=== PATIENT | female | born 1980 | race Asian ===

== ENCOUNTER 2019-03-07 04:30 | Inpatient (IN) | payer OTHER ==
[~2019-03-07] VITALS: Ht 154.9 cm; Wt 77.4 kg
[2019-03-07 05:04] VITALS: BP 129/87; PULSE 82; RESP 18; Ht 154.9 cm; Wt 77.4 kg
[2019-03-07] MEDS ORDERED: LACTATED RINGER'S 1,000 ML IV SCH ×2 (05:16→09:55)
[2019-03-07] MEDS ORDERED: METHYLERGONOVINE 0.2 MG INJ IM PRN ×2 (05:30→10:00)
[2019-03-07] MEDS ORDERED: OXYTOCIN 30 UNITS/LR 500 ML IV PRN ×2 (05:30→10:00)
[2019-03-07] MEDS ORDERED: CARBOPROST 250 MCG INJ IM PRN ×2 (05:30→10:00)
[2019-03-07] MEDS ORDERED: MISOPROSTOL 200 MCG TAB PR PRN ×2 (05:30→10:00)
[2019-03-07] MEDS ORDERED: CEFAZOLIN 2 GM/50 ML (PMX) 50 ML IVPB SCH (05:30)
[2019-03-07] MEDS ORDERED: AZITHROMYCIN 500MG/NS (PMX) 250 ML IV SCH (05:30)
--- NOTE | 2019-03-07 05:57 | TRIAGE ---
OB Triage Datetime Report Generated by CPN: 03/07/2019 05:56 Datetime: 03/07/2019 05:10 Stage of : OB Triage Datetime: 03/07/2019 05:08 Stage of : OB Triage Datetime: 03/07/2019 05:02 Stage of : OB Triage Labor Evaluation Frequency: 3-4 Monitor Mode: External Duration (sec)2399: 50-60 Pattern: Normal: <= 5 Contractions in 10 Minutes Resting Tone [place]: Relaxed Heart Rate FHR Baseline Rate: 130 Monitor Mode: External US Variability: Moderate 6-25 bpm Accelerations: 15X15 Decelerations: None Category: Category I Datetime: 03/07/2019 04:59 Vaginal Exam Dilatation (cms): 2.5 Effacement (%): 80 Station: -2 Exam By: Gilles RN Datetime: 03/07/2019 04:55 Stage of : OB Triage Assessment Type: Triage Maternal Assessment Level of Consciousness: Fully Conscious DTR's/Clonus: DTRs 2+; No Clonus Headache: Denies Blurred Vision: No Respiratory Effort: Unlabored; Regular Rhythm; Equal Expansion Breath Sounds, Left: Clear and Equal Breath Sounds, Right: Clear and Equal Nausea/Vomiting: Denies RUQ Epigastric Pain: Denies Lower Extremities Edema: None Degree: None Upper Extremities Edema: None Degree: None Facial Edema: None Temperature Route: Oral Fall Risk Assessment History of Falling: (0) No Secondary Diagnosis: (0) No Ambulatory Aid: (0) Bedrest/Nurse Assist IV Therapy: (0) No Gait: (0) Normal/Bedrest/Immobile Mental Status: (0) Oriented to Own Ability Fall Score: 0 Fall Risk Score Definition: No Risk: No action required Monitor Mode: External Monitor Mode: External US Pain Assessment Pain Scale: 10 Pain Presence: Intermittent Pain Type: Contraction Pain Location: Abdomen; Back Pain Goal: 0 Datetime: 03/07/2019 04:54 Time of Arrival: 03/07/2019 04:33 EGA: 38.2 Arrived By: Wheelchair Arrived From: Emergency Dept Movement: Present Contractions: Regular Contractions: 5-6 Rupture of Membranes: Denies Vaginal Bleeding: None Vaginal Discharge: Denies Abdominal Trauma: Not Applicable Patient Complaints: Contractions Time Provider Notified: 03/07/2019 05:10 Provider Notified: LUCHO Initial Plan: VS, EFAaron, TORRES
[2019-03-07] MEDS ORDERED: PREN-22 PO (06:03)
[2019-03-07] MEDS ORDERED: CALC500T11 PO (06:05)
[2019-03-07] MEDS ORDERED: LACTATED RINGER'S 1,000 ML IV ONE (07:12)
--- NOTE | 2019-03-07 07:12 | PREAC ---
Date/Time of Note Date/Time of Note DATE: 03/07/19 TIME: 07:10 Anesthesia Eval and Record Evaluation Time Pre-Procedure Interview DATE: 03/07/19 TIME: 07:10 Age 38 Sex female NPO: Other (ate 11/22 banana 3 hours but in active labor with previous c sections so per OB doctor cannot wait for patient to be NPO) Preoperative diagnosis IUP 38.2 weeks Planned procedure repeat c section and btl Past Medical History Past Medical History: Includes : : (3), Para: (2), Gestational age: (38.2), Gestational diabetes Surgery & Anesthesia Issues No known issue Meds Anticoagulation: No Beta Eugenia within 24 hr: No Reason Beta Eugenia not given: Pt. not on B-Eugenia Reported Medications Calcium Carbonate (Oysco-500) 500 Mg Tablet, 500 MG PO, TAB 03/07/19 Pnv No.118/Iron Fumarate/FA ( 19 Chewable Tablet) 1 Each Tab.chew, 1 EACH PO, TAB.CHEW 03/07/19 Current Medications Lactated Ringer's 1,000 ml @ 125 mls/hr Q8H IV Last administered on 03/07/19at 05:35; Admin Dose 125 MLS/HR; Start 03/07/19 at 05:16 Cefazolin Sodium/ Dextrose 50 ml @ 100 mls/hr ONCE IVPB ; Start 03/07/19 at 05:30 Azithromycin 250 ml @ 250 mls/hr ONCE IV Last administered on 03/07/19at 05:55; Admin Dose 250 MLS/HR; Start 03/07/19 at 05:30 Oxytocin/Lactated Ringer's 500 ml @ 0 mls/hr ONCE PRN IV .VAGINAL BLEEDING; Start 03/07/19 at 05:30 Methylergonovine Maleate (Methergine) 0.2 mg ONCE PRN IM .VAGINAL BLEEDING; Start 03/07/19 at 05:30 Carboprost Tromethamine (Hemabate) 250 mcg ONCE PRN IM .VAGINAL BLEEDING; Start 03/07/19 at 05:30 Misoprostol (Cytotec) 1,000 mcg ONCE PRN [place] .VAGINAL BLEEDING; Start 03/07/19 at 05:30 Meds reviewed: Yes Allergies Coded Allergies: Penicillins (Verified Allergy, Severe, sob, rash, 03/07/19) Allergies Reviewed: Yes Labs/Studies Labs Reviewed: Reviewed by anesthesiologist Result Diagram: 03/07/19 0531 Laboratory Tests 03/07/19 05:31 test: N/A Pre-procedure Exam Last vitals Vital Signs Date Temp Pulse Resp B/P (MAP) Pulse Ox O2 O2 Flow FiO2 Time Delivery Rate 03/07/19 97.9 82 18 129/87 Room Air 05:04 (101) Airway: Adequate mouth opening, Adequate thyromental dist Mallampati: Mallampati II Teeth: Normal Lung: Normal Heart: Normal ASA Physical Status ASA physical status: 2 Emergency: E Planned Anesthetic Neuraxial: Spinal Planned Pain Management Parenteral pain med Pre-operative Attestations Prior to commencing anesthesia and surgery, the patient was re-evaluated, there was verification of: *The patient's identity *The results of appropriate recent lab work and preoperative vital signs *The above evaluation not changing prior to induction *Anesthetic plan, risk benefits, alternative and complications discussed with patient/family; questions answered; patient/family understands, accepts and wishes to proceed. JEFF CAMARILLO MD Mar 07, 2019 07:12
[2019-03-07] MEDS ORDERED: METOCLOPRAMIDE 10 MG INJ ONE (07:16)
[2019-03-07] MEDS ORDERED: morphine SULFATE/PF (10 MG/10 ML) INJ ONE (07:16)
[2019-03-07] MEDS ORDERED: CITRIC ACID/NA CITRATE 30 ML CUP ONE (07:17)
[2019-03-07] MEDS ORDERED: FAMOTIDINE 20 MG INJ ONE (07:17)
[2019-03-07] MEDS ORDERED: FAMOTIDINE 20 MG INJ IV ONE (07:30)
[2019-03-07] MEDS ORDERED: METOCLOPRAMIDE 10 MG INJ IV ONE (07:30)
[2019-03-07] MEDS ORDERED: CITRIC ACID/NA CITRATE 30 ML CUP PO ONE (07:30)
--- NOTE | 2019-03-07 07:47 | PREOPHP ---
DATE OF ADMISSION: 03/07/2019 HISTORY OF PRESENT ILLNESS: This is a 38-year-old lady, 3, para 2, EDC March 19, 2019 at 38 and 2/7 weeks, admitted to labor and delivery area in labor. She had care in my [place] office and the care was uneventful. She started to have contractions about a few hours prior to a dmission and got worse up to the time of admission. She wanted to go for sterilization, so she is fo r repeat , plus bilateral tubal ligation. The procedures were explained to the patient and she understood everything totally. The risks, benefits and alternatives were discussed with her as w jose. PAST PERSONAL HISTORY: No history of TB, asthma. ALLERGIES: NO ALLERGIES. SOCIAL HISTORY: Patient does not smoke. She does not drink. MEDICATIONS: She does not take any drugs except her iron and vitamins. She is gestational diabetes and on diet control. GYNECOLOGIC HISTORY: She had menarche at the age of 18, every 28 days interval, 3 to 4 days duration , and moderate in amount. FAMILY HISTORY: Mother has hypertension and heart disease. She is 3, para 2. Her first del jerri was in 2011 and the second in 2015, all by . REVIEW OF SYSTEMS: CARDIOVASCULAR: No chest pains. RESPIRATORY: No cough. GASTROINTESTINAL: No diarrhea, no vomiting. GENITOURINARY: No dysuria. PHYSICAL EXAMINATION: GENERAL: Reveals a conscious, coherent lady in no acute distress. VITAL SIGNS: Her blood pressure 130/80, pulse rate 80 per minute, respirations 16 per minute. BREASTS, HEART AND LUNGS: Within normal limits. ABDOMEN: Soft. No organomegaly. Fundic height 38 cm. heart tones 140 per minute. PELVIC: Revealed the cervix to be 4 cm dilated, 100% effaced, station floating in cephalic presentat ion with the bag of water intact. EXTREMITIES: No pedal edema. ADMITTING DIAGNOSIS: A 38 and 2/7 weeks intrauterine in labor with previous , mul tiparity. Patient desires sterilization. The patient was planned to have a repeat , plus t ubal ligation and transection. The procedures were explained to the patient and she understood every thing totally. The risks, benefits, and alternatives were discussed with her as well. Dictated By: AJ HERRON/HANNAH Conf#: [id number] [facility]#: [id number]
[2019-03-07] MEDS ORDERED: ONDANSETRON 4 MG INJ ONE (07:53)
[2019-03-07] MEDS ORDERED: MIDAZOLAM 1 MG/ML 2 ML INJ ONE (07:56)
[2019-03-07] MEDS ORDERED: FENTAnyl 50 MCG/ML VIAL ONE (08:07)
[2019-03-07] MEDS ORDERED: OXYTOCIN 30 UNITS/LR 500 ML IV ONE (08:19)
[2019-03-07] MEDS ORDERED: FENTAnyl 50 MCG/ML VIAL IV PRN ×3 (08:30)
[2019-03-07] MEDS ORDERED: KETOROLAC 30 MG INJ IV PRN (08:30)
[2019-03-07] MEDS ORDERED: ONDANSETRON 4 MG INJ IV PRN ×2 (08:30→10:30)
[2019-03-07] MEDS ORDERED: DIPHENHYDRAMINE 50 MG INJ IV PRN (08:30)
[2019-03-07] MEDS ORDERED: MEPERIDINE 25 MG INJ IV PRN (08:30)
[2019-03-07] MEDS ORDERED: PROCHLORPERAZINE 10 MG INJ IV PRN (08:30)
[2019-03-07] MEDS ORDERED: HYDROmorphONE 1 MG/5 ML IV SYRINGE IV PRN ×3 (08:30)
[2019-03-07] MEDS ORDERED: OXYTOCIN 30 UNITS/LR 500 ML IV SCH ×2 (09:41→09:55)
--- NOTE | 2019-03-07 09:55 | OPPN ---
Date/Time of Note Date/Time of Note DATE: 03/07/19 TIME: 09:53 Operative Report Planned Procedure Procedure date Mar 07, 2019 Procedure(s) REPEAT CSECTION LYSIS OF ADHESION AND BTL Performed by see signature line Tower Equipment Repairer: NICOLÁS KHAN MD 2nd Tower Equipment Repairer none Pre-procedure diagnosis 38 WEEK 2/7 IUP MULTIPARITY [id number] Anesthesia Type: [id number] spinal Post-Procedure Post-procedure diagnosis 38 WEEKS 2/7 IUP MULTIPARITY PELVIC ADHESION Findings Live Baby [], Apgars [] and [], weight [], position [], [] presentation []cord. Estimated Blood Loss: other (800) Specimen(s) none Grafts/Implant(s) PLACENTA BOTH TUBES Complication(s) none AJ YEPEZ MD Mar 07, 2019 09:55
[2019-03-07] MEDS ORDERED: METHYLERGONOVINE 0.2 MG TAB PO PRN (10:00)
[2019-03-07] MEDS ORDERED: LANOLIN HPA 1 PKT TOP PRN (10:00)
[2019-03-07] MEDS: OXYTOCIN 30 UNITS/LR 500 ML IV SCH ×2 (10:04→11:25)
[2019-03-07] MEDS ORDERED: NALOXONE (0.4 MG/ML) INJ IV PRN (10:30)
[2019-03-07] MEDS ORDERED: ZOLPIDEM 5 MG TAB PO PRN (10:30)
[2019-03-07] MEDS ORDERED: HYDROmorphONE 0.5 MG/0.5 ML SYG IV PRN ×2 (10:30)
--- NOTE | 2019-03-07 11:34 | PAC ---
Date/Time of Note Date/Time of Note DATE: 03/07/19 TIME: 11:34 Post-Anesthesia Notes Post-Anesthesia Note Last documented vital signs Vital Signs Date Temp Pulse Resp B/P (MAP) Pulse Ox O2 O2 Flow FiO2 Time Delivery Rate 03/07/19 97.9 82 18 129/87 Room Air 05:04 (101) Activity: WNL Respiratory function: WNL Cardiovascular function: WNL Mental status: Baseline Pain reasonably controlled: Yes Hydration appropriate: Yes Nausea/Vomiting absent: Yes Comments BP: 139/85 HR: 87 RR: 15 T: 98.3 SaO2: 97% JEFF CAMARILLO MD Mar 07, 2019 11:34
[2019-03-07 12:00] VITALS: BP 142/80; PULSE 77; RESP 18
[2019-03-07 13:00] VITALS: BP 142/68; PULSE 77; RESP 18
[2019-03-07] MEDS: KETOROLAC 30 MG INJ IV PRN (13:56)
[2019-03-07] MEDS: DIPHENHYDRAMINE 50 MG INJ IV PRN (15:05)
[2019-03-07 15:34] VITALS: BP 132/72; PULSE 76; RESP 18
--- NOTE | 2019-03-07 17:33 | OPR ---
DATE OF OPERATION: 03/07/2019 PREOPERATIVE DIAGNOSES: 1. A 38 and 2/7 weeks intrauterine in labor. 2. Two previous sections. 3. Multiparity. 4. Desires sterilization. POSTOPERATIVE DIAGNOSES: 1. A 38 and 2/7 weeks intrauterine in labor. 2. Two previous sections. 3. Multiparity. 4. Desires sterilization. 5. Severe pelvic and abdominal adhesions. 6. atony. SURGEON: Aj Upton MD ROPE SILICA MACHINE OPERATOR: Trupti Anand MD ANESTHESIA: Spinal. ANESTHESIOLOGIST: Cora Meraz MD OPERATIVE TECHNIQUE: Under spinal anesthesia, the patient was prepped and draped in the usual fashio n for abdominal surgery. After checking for the effect of the anesthesia, the previous Pfannenstiel scar was excised. A 12 cm skin incision was performed. The incision was carried from the skin up to the fascia. Upon opening the skin up to the fascia, small blood vessels were noted to be oozing and these were all cauterized. Fascia was opened transversely followed by splitting the muscles vertica lly and the peritoneum vertically. Upon opening the abdominal cavity, the omentum was noted to be at tached all over the anterior parietal peritoneum. All these adhesions were lysed by sharp and blunt dissection. Bladder blade was put in place. The lower uterine segment was noted to be very thinned out. An incision was performed about 2 inches above the lower uterine segment from the serosa up to the endometrium and the sawyer was carried sideways with the aid of my 2 fingers. My left hand was ins erted on the lower segment of the uterus and the bag of water was ruptured. Clear fluid was noted. Baby's head was tried to be delivered with good fundal pressure, but with difficulty, so that the vac uum was applied once and after 3 seconds delivered the baby's head. The baby's airway was quickly sandoval ctioned with amniotic fluid. There was 1 loop of tight cord around the baby's neck that needs to be released prior to the delivery of the rest of the body of the baby. Baby's cord was clamped after 30 seconds. The baby was handed to the nursery nurse and to the NICU team. The placenta was delivered manually and complete. The uterus was exteriorized. The uterus was cleansed with wet lap sponge to make sure that no membranes were left behind. After correct sponge count, the uterus was clos ed in the usual fashion using #1 chromic for the first layer, continuous locking suture was used foll owed by #1 chromic for the second layer, imbricating sutures were used. Bleeders were checked and th ere was no bleeding noted. After checking for any bleeders in which there were none, both tubes and ovaries were inspected. They were healthy looking. The right tube was grasped on the center where t he avascular area was. A 1 cm tube was stick tied at the proximal and distal portions, first stick t ie with 2-0 silk on the proximal and distal portion about 1 cm tube was put in and this was followed by another stick tie with 2-0 chromic. Then, the right tube was cut and the cut ends were cauterized . The right fimbria was identified. As mentioned, a stick tie with 2-0 silk and the proximal and di stal portion was done followed by another free tie with 2-0 chromic above the second tie. As mention ed, the right tube was cut and the cut ends were cauterized. Same thing was done on the left side. A 1 cm tube was transected on both sides. Then, bleeders were checked and there was no bleeding note d. Both ovaries were identified. They were healthy looking. The broad ligaments were checked for a ny hematoma and there was none noted. Then the uterus was put back to the pelvic cavity. Once again , uterine incision was checked for any bleeders and there was no bleeding noted. After correct spong e count, needle count and instrument count as confirmed by the extractions technician and office services manager, the abdomen was closed in the usual fashion using 0 Vicryl for the peritoneum, 0 Vicryl for the muscles, for the fascia 0 Vicryl continuous stitch was used followed by few [id number] suture for the subcutaneo us tissue, it was closed with 3-0 Vicryl and the skin was closed with 3-0 Vicryl, subcuticular suture was used. The patient tolerated the procedure well. After the , vaginal exam was done as I always do and there was about 200 mL of clotted and unclotted blood inside the uterus and the uteru s was hypotonic. After extracting all the blood clots and after ordering Methergine and Hemabate, th e uterus was contracted. The estimated blood loss was about 800 mL. Vital signs were stable during and after the delivery. She delivered on 03/07/2019 at 7:54 a.m. healthy girl, 9 and 9, weighi ng 7 pounds, 3180 grams, 19.8 inches long. Dictated By: AJ HERRON/HANNAH Conf#: [id number] DID#: [id number]
[2019-03-07 19:55] VITALS: BP 107/55; PULSE 77; RESP 18
[2019-03-07] MEDS: SENNA/DOCUSATE NA (8.6MG/50MG) TAB PO SCH (21:16)
[2019-03-08] MEDS: KETOROLAC 30 MG INJ IV PRN ×2 (00:14→07:43)
[2019-03-08 00:15] VITALS: BP 116/70; PULSE 71; RESP 19
[2019-03-08] MEDS: DIPHENHYDRAMINE 50 MG INJ IV PRN (00:15)
[2019-03-08 03:45] VITALS: BP 112/59; PULSE 74; RESP 19
[2019-03-08] MEDS ORDERED: IBUPROFEN 800 MG TAB PO PRN (07:30)
[2019-03-08 08:00] VITALS: BP 110/63; PULSE 69; RESP 18
[2019-03-08] MEDS: SENNA/DOCUSATE NA (8.6MG/50MG) TAB PO SCH ×2 (10:03→21:54)
[2019-03-08] MEDS: HYDROCODONE/APAP (5/325) TAB PO PRN ×3 (11:33→21:56)
[2019-03-08 16:00] VITALS: BP 132/75; PULSE 74; RESP 18
[2019-03-08] MEDS: IBUPROFEN 800 MG TAB PO PRN (17:13)
--- NOTE | 2019-03-08 18:28 | PN ---
Date/Time of Note Date/Time of Note DATE: 03/08/19 TIME: 18:26 Assessment/Plan VTE Prophylaxis Risk score (from Ns)>0 risk: 2 SCD applied (from Ns): Yes Pharmacological prophylaxis: NA/contraindicated Pharm contraindication: low risk/ambulating Lines/Catheters IV Catheter Type (from Nrs): Peripheral IV Assessment/Plan Assessment/Plan POSTCSECTION DAY 1 CHRONIC IRON DEFICIENCY ANEMIA ORDERED ADVANCE DIET TOLERATED CBC ON 3RD POSTOP DAY Result Diagram: 03/08/19 0818 03/08/19 0818 Results 24hrs Laboratory Tests Test 03/08/19 06:36 03/08/19 08:18 Lab Scanned Report REFERENCE LAB White Blood Count 10.0 Red Blood Count 3.65 L Hemoglobin 10.2 L Hematocrit 32.0 L Mean Corpuscular Volume 87.7 Mean Corpuscular Hemoglobin 27.9 L Mean Corpuscular Hemoglobin Concent 31.9 L Red Cell Distribution Width 12.7 Platelet Count 242 Mean Platelet Volume 9.6 Immature Granulocytes % 0.400 Neutrophils % 79.5 H Lymphocytes % 13.7 L Monocytes % 6.0 Eosinophils % 0.2 Basophils % 0.2 Nucleated Red Blood Cells % 0.0 Immature Granulocytes # 0.040 H Neutrophils # 8.0 H Lymphocytes # 1.4 Monocytes # 0.6 Eosinophils # 0.0 Basophils # 0.0 Nucleated Red Blood Cells # 0.0 Sodium Level 135 Potassium Level 3.8 Chloride Level 100 Carbon Dioxide Level 29 Anion Gap 6 Blood Urea Nitrogen 11 Creatinine 0.63 Est Glomerular Filtrat Rate mL/min > 60 Glucose Level 76 Calcium Level 8.5 Subjective 24 Hr Interval Summary Free Text/Dictation POST CSECTION DAY 1 COMPLAIN OF INCISIONAL PAINS GOOD URINE OUTPUT PASSING GAS PER RECTUM NO BOWEL MOVEMENT YET Exam/Review of Systems Exam Vitals Vital Signs Date Temp Pulse Resp B/P (MAP) Pulse Ox O2 O2 Flow FiO2 Time Delivery Rate 03/08/19 98.6 74 18 132/75 Room Air 16:00 (94) 03/08/19 96 03:45 Intake and Output 03/07/19 03/07/19 03/08/19 1515:00 23:00 07:00 IntakeIntake Total 1500 ml 100 ml 400 ml OutputOutput Total 2195 ml 700 ml 500 ml BalanceBalance -695 ml -600 ml -100 ml Exam VITAL SIGNS STABLE: YES AFEBRILE: YES BREAST NOT ENGORGED, NON-TENDER, NO APPRECIABLE MASS: YES LUNGS CLEAR, NO RALES, WHEEZES, RHONCHI: YES SINUS RHYTHM WITHOUT MURMUR: YES ABDOMEN: NON-TENDER FUNDUS: BELOW UMBILICUS BOWEL SOUNDS: PRESENT UTERUS: FIRM INCISION (CLEAN, DRY, AND INTACT): YES LOCHIA: LIGHT DEEP TENDON REFLEXES: 0 EXTREMITIES: NO CALF TENDERNESS EDEMA SCALE: NONE Results Results 24hrs Laboratory Tests Test 03/08/19 06:36 03/08/19 08:18 Lab Scanned Report REFERENCE LAB White Blood Count 10.0 Red Blood Count 3.65 L Hemoglobin 10.2 L Hematocrit 32.0 L Mean Corpuscular Volume 87.7 Mean Corpuscular Hemoglobin 27.9 L Mean Corpuscular Hemoglobin Concent 31.9 L Red Cell Distribution Width 12.7 Platelet Count 242 Mean Platelet Volume 9.6 Immature Granulocytes % 0.400 Neutrophils % 79.5 H Lymphocytes % 13.7 L Monocytes % 6.0 Eosinophils % 0.2 Basophils % 0.2 Nucleated Red Blood Cells % 0.0 Immature Granulocytes # 0.040 H Neutrophils # 8.0 H Lymphocytes # 1.4 Monocytes # 0.6 Eosinophils # 0.0 Basophils # 0.0 Nucleated Red Blood Cells # 0.0 Sodium Level 135 Potassium Level 3.8 Chloride Level 100 Carbon Dioxide Level 29 Anion Gap 6 Blood Urea Nitrogen 11 Creatinine 0.63 Est Glomerular Filtrat Rate mL/min > 60 Glucose Level 76 Calcium Level 8.5 Medications Medication Current Medications Oxytocin/Lactated Ringer's 500 ml @ 0 mls/hr ONCE PRN IV .VAGINAL BLEEDING; Start 03/07/19 at 05:30 Oxytocin/Lactated Ringer's 500 ml @ 500 mls/hr ONCE POST IV ; Start 03/07/19 at 09:41 Oxytocin/Lactated Ringer's 500 ml @ 125 mls/hr POST IV Last administered on 03/07/19at 11:25; Admin Dose 125 MLS/HR; Start 03/07/19 at 09:41 Methylergonovine Maleate (Methergine) 0.2 mg Q6H PRN PO .VAGINAL BLEEDING; Start 03/07/19 at 10:00 Acetaminophen/ Hydrocodone Bitart ([place] (5/325)) 1 tab Q4H PRN PO MODERATE PAIN LEVEL 4-6 Last administered on 03/08/19at 17:14; Admin Dose 1 TAB; Start 03/08/19 at 07:30 Acetaminophen/ Hydrocodone Bitart ([place] (5/325)) 2 tab Q4H PRN PO SEVERE PAIN LEVEL 7-10 Last administered on 03/08/19at 11:33; Admin Dose 2 TAB; Start 03/08/19 at 07:30 Simethicone (Mylicon) 160 mg Q8H PRN PO .GAS; Start 03/07/19 at 10:00 Senna/Docusate Sodium (Senokot-S) 1 tab BID PO Last administered on 03/08/19at 10:03; Admin Dose 1 TAB; Start 03/07/19 at 21:00 Lanolin (Lanolin Hpa) 1 applic BEDSIDE MEDICATION PRN TOP .NIPPLES; Start 03/07/19 at 10:00 Diphtheria/ Tetanus/Acell Pertussis (Adacel) 0.5 ml ONCE ONCE IM* ; Start 03/10/19 at 09:00; Stop 03/10/19 at 09:01 Measles/Mumps/ Rubella Vaccine Live (Mmr Ii Vaccine) 0.5 ml ONCE ONCE SC* ; Start 03/10/19 at 09:00; Stop 03/10/19 at 09:01 Oxytocin/Lactated Ringer's 500 ml @ 0 mls/hr ONCE PRN IV .VAGINAL BLEEDING; Start 03/07/19 at 10:00 Methylergonovine Maleate (Methergine) 0.2 mg ONCE PRN IM .VAGINAL BLEEDING; Start 03/07/19 at 10:00 Carboprost Tromethamine (Hemabate) 250 mcg ONCE PRN IM .VAGINAL BLEEDING; Start 03/07/19 at 10:00 Misoprostol (Cytotec) 1,000 mcg ONCE PRN SC .VAGINAL BLEEDING; Start 03/07/19 at 10:00 Ibuprofen (Motrin) 800 mg Q8H PRN PO MILD PAIN LEVEL 1-3 Last administered on at 17:13; Admin Dose 800 MG; Start 03/08/19 at 16:00 AJ YEPEZ MD Mar 08, 2019 18:28
[2019-03-08 20:05] VITALS: BP 123/72; PULSE 70; RESP 18
[2019-03-09] MEDS: IBUPROFEN 800 MG TAB PO PRN ×2 (03:30→21:18)
[2019-03-09] MEDS: HYDROCODONE/APAP (5/325) TAB PO PRN ×3 (03:30→17:18)
[2019-03-09 04:15] VITALS: BP 126/61; PULSE 68; RESP 18
[2019-03-09 08:00] VITALS: BP 123/72; PULSE 69; RESP 19
[2019-03-09] MEDS: SENNA/DOCUSATE NA (8.6MG/50MG) TAB PO SCH ×2 (09:00→21:18)
[2019-03-09 15:40] VITALS: BP 115/65; PULSE 74; RESP 16
--- NOTE | 2019-03-09 16:55 | PN ---
Date/Time of Note Date/Time of Note DATE: 03/09/19 TIME: 16:53 Assessment/Plan VTE Prophylaxis Risk score (from Nsg)>0 risk: 3 SCD applied (from Nsg): No SCD contraindicated: low risk/ambulating Pharmacological prophylaxis: NA/contraindicated Pharm contraindication: low risk/ambulating Lines/Catheters IV Catheter Type (from Nrsg): Peripheral IV Assessment/Plan Assessment/Plan POST CSECTION DAY 2 HOME TOMORROW CBC TOMORROW COUNSELED INSTRUCTED PRESCRIPTION GIVEN FOR PAIN RETURN TO CLINIC IN 2 WEEKS CALL OFFICE IF THERE IS ANY PROBLEM OR CONCERN CONTINUE WITH VITAMINS OD AND FERROUS SULFATE 325MG PO TID DIET ADVISED Result Diagram: 03/08/1981703/08/19817 Subjective 24 Hr Interval Summary Free Text/Dictation POST CSECTION DAY 2 LITTLE BOWEL MOVEMENT GOOD URINE OUTPUT FEELS LESS INCISIONAL PAINS Exam/Review of Systems Exam Vitals Vital Signs Date Temp Pulse Resp B/P (MAP) Pulse Ox O2 O2 Flow FiO2 Time Delivery Rate 03/09/19 98.4 74 16 115/65 15:40 (82) 03/09/19 Room Air 08:00 03/08/19 96 03:45 Exam VITAL SIGNS STABLE: YES AFEBRILE: YES BREAST NOT ENGORGED, NON-TENDER, NO APPRECIABLE MASS: YES LUNGS CLEAR, NO RALES, WHEEZES, RHONCHI: YES SINUS RHYTHM WITHOUT MURMUR: YES ABDOMEN: NON-TENDER FUNDUS: BELOW UMBILICUS BOWEL SOUNDS: PRESENT UTERUS: FIRM INCISION (CLEAN, DRY, AND INTACT): YES LOCHIA: LIGHT DEEP TENDON REFLEXES: 0 EXTREMITIES: NO CALF TENDERNESS EDEMA SCALE: NONE Medications Medication Current Medications Oxytocin/Lactated Ringer's 500 ml @ 0 mls/hr ONCE PRN IV .VAGINAL BLEEDING; Start 03/07/19 at 05:30 Oxytocin/Lactated Ringer's 500 ml @ 500 mls/hr ONCE POST IV ; Start 03/07/19 at 09:41 Oxytocin/Lactated Ringer's 500 ml @ 125 mls/hr POST IV Last administered on 03/07/19at 11:25; Admin Dose 125 MLS/HR; Start 03/07/19 at 09:41 Methylergonovine Maleate (Methergine) 0.2 mg Q6H PRN PO .VAGINAL BLEEDING; Start 03/07/19 at 10:00 Acetaminophen/ Hydrocodone Bitart ([place] (5/325)) 1 tab Q4H PRN PO MODERATE PAIN LEVEL 4-6 Last administered on 03/09/19at 03:30; Admin Dose 1 TAB; Start at 07:30 Acetaminophen/ Hydrocodone Bitart ([place] (5/325)) 2 tab Q4H PRN PO SEVERE PAIN LEVEL 7-10 Last administered on 03/09/19 11:01; Admin Dose 2 TAB; Start 03/08/19 at 07:30 Simethicone (Mylicon) 160 mg Q8H PRN PO .GAS Last administered on 03/09/19 06:42; Admin Dose 160 MG; Start 03/07/19 at 10:00 Senna/Docusate Sodium (Senokot-S) 1 tab BID PO Last administered on 03/08/19 21:54; Admin Dose 1 TAB; Start 03/07/19 at 21:00 Lanolin (Lanolin Hpa) 1 applic BEDSIDE MEDICATION PRN TOP .NIPPLES; Start 03/07/19 at 10:00 Diphtheria/ Tetanus/Acell Pertussis (Adacel) 0.5 ml ONCE ONCE IM* ; Start 03/10/19 at 09:00; Stop 03/10/19 at 09:01 Measles/Mumps/ Rubella Vaccine Live (Mmr Ii Vaccine) 0.5 ml ONCE ONCE SC* ; Start 03/10/19 at 09:00; Stop 03/10/19 at 09:01 Oxytocin/Lactated Ringer's 500 ml @ 0 mls/hr ONCE PRN IV .VAGINAL BLEEDING; Start 03/07/19 at 10:00 Methylergonovine Maleate (Methergine) 0.2 mg ONCE PRN IM .VAGINAL BLEEDING; Start 03/07/19 at 10:00 Carboprost Tromethamine (Hemabate) 250 mcg ONCE PRN IM .VAGINAL BLEEDING; Start 03/07/19 at 10:00 Misoprostol (Cytotec) 1,000 mcg ONCE PRN [place] .VAGINAL BLEEDING; Start 03/07/19 at 10:00 Ibuprofen (Motrin) 800 mg Q8H PRN PO MILD PAIN LEVEL 1-3 Last administered on 03/09/19 03:30; Admin Dose 800 MG; Start 03/08/19 at 16:00 AJ YEPEZ MD Mar 09, 2019 16:54
[2019-03-09 20:00] VITALS: BP 131/69; PULSE 76; RESP 20
[2019-03-10] MEDS: HYDROCODONE/APAP (5/325) TAB PO PRN ×2 (02:05→07:36)
[2019-03-10 03:21] VITALS: BP 124/64; PULSE 74; RESP 20
[2019-03-10 08:21] VITALS: BP 140/81; PULSE 64; RESP 19
[2019-03-10] MEDS: SENNA/DOCUSATE NA (8.6MG/50MG) TAB PO SCH (09:00)
[2019-03-10] MEDS ORDERED: MEASLES,MUMPS,RUBELLA VACCINE INJ SC* ONE (09:00)
[2019-03-10] MEDS ORDERED: DIPHTH/TET/ACEL PERTUSS (ADULT) 0.5 ML VIAL IM* ONE (09:00)
[2019-03-10 10:00] VITALS: BP 121/67; PULSE 63; RESP 20
--- NOTE | 2019-03-10 11:17 | NSTRPT ---
NST Information Datetime Report Generated by CPN: 03/10/2019 11:17 Datetime: 03/05/2019 10:55 NST Information EGA: 38.0 Test Number: 2 Time on Monitor: 03/05/2019 11:09 Time off Monitor: 03/05/2019 11:57 NST Duration (Min): 48 Reason for NST: Diabetes Mellitus; Other Reason for NST Other: A1DM Test and Monitor Explained: Monitor Explained; Test Explained; Verbalized Understanding; Breastfeed ing Info Given Pulse: 75 Resp: 18 SBP: 118 DBP: 70 Test Evaluation NST Interventions: Reposition Patient Patient States Movement: Present Contraction Frequency: NONE FHR Baseline : 135 Variability: Moderate 6-25bpm Accelerations: 15X15 FHR Category: Category I NST Results: Reactive Comments: PT TO U/S. MONTY 11.2cm. CEPPHALIC. Strip reviewed by Dr. Jain before discharge. Electronically Signed By E-Signature: with User ID: [id number] Datetime: 02/26/2019 11:00 NST Information EGA: 37.0 NST Duration (Min): 28
--- NOTE | 2019-03-11 14:25 | DELSUM ---
Delivery Summary A-C Datetime Report Generated by CPN: 03/11/2019 14:25 DELIVERY PERSONNEL It Project Manager: Arnold, Mackenzie MATERNAL INFORMATION Delivery Anesthesia: Spinal Medications in Delivery: SEE ANESTHESIA RECORDS Delivery QBL (ml): 800 Placenta Cultured: No Maternal Complications: Other Other Maternal Complications: GDM LABOR SUMMARY EDC: 03/19/2019 00:00 No. Babies in Womb: 1 Attempted: No Labor Anesthesia: None LABOR INFORMATION Reason for Induction: Not Applicable Onset of Labor: 03/07/2019 02:30 Oxytocin: N/A Group B Beta Strep: Negative Antibiotics # of Doses: zithromax 500 mg; ancef 2 gm Antibiotics Time of Last Dose: 03/07/2019 07:17 Steroids Given: None Reason Steroids Not Administered: Not Applicable MEMBRANES Membranes Rupture Method: Artificial Rupture of Membranes: 03/07/2019 07:53 Length of Rupture (hr): 0.02 Amniotic Fluid Color: Clear Amniotic Fluid Amount: Moderate Amniotic Fluid Odor: Normal STAGES OF LABOR Stage 3 hr: 0 Stage 3 min: 1 Total Time in Labor hr: 5 Total Time in Labor min: 25 CSECTION DELIVERY Primary Indication: Repeat Elective CSection Urgency: Elective CSection Incidence: Repeat Labor: Labor CSection Incision: Lower Uterine Transverse Sterilization Procedure: [place] BABY A INFORMATION Delivery Date/Time: 03/07/2019 07:54 Method of Delivery: Born in Route : No : N/A Forceps: N/A Vacuum Extraction: Successful Shoulder Dystocia : N/A ASSISTED DELIVERY BABY A Vacuum Number of Pulls: 1 Vacuum Number of PopOffs: 0 Vacuum Chief Administrative Officer: kiwi SHOULDER DYSTOCIA BABY A Infant Delivery Date/Time: 03/07/2019 07:54 PRESENTATION/POSITION BABY A Presentation: Cephalic Cephalic Presentation: Vertex Vertex Position: Left Occipital Anterior Breech Presentation: N/A PLACENTA INFORMATION BABY A Placenta Delivery Time : 03/07/2019 07:55 Placenta Method of Delivery: Manual Removal Placenta Status: Delivered SCORES BABY A Heart Rate 1 min: >100 bpm Resp Effort 1 min: Good Cry Reflex Irritability 1 min: Cough/Sneeze/Pulls Away Muscle Tone 1 min: Active Motion Color 1 min: Body [place], Extremit Blue Resuscitation Effort 1 min: Tactile Stimulation SCORE 1 MIN: 9 Heart Rate 5 min: >100 bpm Resp Effort 5 min: Good Cry Reflex Irritability 5 min: Cough/Sneeze/Pulls Away Muscle Tone 5 min: Active Motion Color 5 min: Body [place], Extremit Blue Resuscitation Effort 5 min: Tactile Stimulation SCORE 5 MIN: 9 INFORMATION BABY A Gestational Age at Delivery: 38.2 Gestational Status: Early Term- 37- 38.6 Weeks Outcome : Liveborn Infant Condition : Stable Infant Sex: Female IDENTIFICATION/MEDS BABY A ID Band Number: [id number] ID Band Location: Right Leg; Left Arm Sensor Applied: Yes Sensor Number: [id number] Sensor Location : Cord Clamp Vitamin K Given : Not Given Erythromycin Given: Not Given WEIGHT/LENGTH BABY A Birthweight (gm): 3180 Infant Weight (lb): 7 Infant Weight (oz): 0 Infant Length (in): 19.50 Infant Length (cm): 49.53 CORD INFORMATION BABY A No. Cord Vessels: 3 Nuchal Cord : Around Neck x1, Loose Cord Blood Taken: Yes Infant Suction: Mouth; Nose ASSESSMENT BABY A Complications: None Physical Findings at Delivery: Within Normal Limits Respirations: Appears Normal Pleat Taper/ALS Called : No Care By: AVERY Harper Transferred To: Remains with Mother
== END 2019-03-10 14:15 | disposition home or self-care (01) | DRG 785 ==
LOC: OBT 04:30 → L-D 04:30 → OBT 05:10 → L-D 05:10 → PP1 11:53
PROVIDERS: ADMIT Obstetrics & Gynecology; ATTEND Obstetrics & Gynecology
PROC: 0UL70ZZ Occlusion of Bilateral Fallopian Tubes, Open Approach (ICD-10-PCS; 2019-03-07)
PROC: 10D00Z1 Extraction of Products of Conception, Low, Open Approach (ICD-10-PCS; principal; 2019-03-07 08:15)
DX: O65.5 Obstructed labor due to abnormality of maternal pelvic organs (principal); O34.211 Maternal care for low transverse scar from previous cesarean delivery; K66.0 Peritoneal adhesions (postprocedural) (postinfection); Z3A.38 38 weeks gestation of pregnancy; Z37.0 Single live birth; Z30.2 Encounter for sterilization
CPT/HCPCS: 80048; 85025; 85610; 85730; 86592; 86850; 86900; 86901; 88302; 99464; G0463; J0456; J0690; J1170; J1200; J1885; J2250; J2274; J2405; J2590; J2765; J3010; J7120